=== PATIENT | male | born 1985 | race Caucasian/White ===

== ENCOUNTER 2019-06-26 13:45 | Emergency (ER) | payer SELFPAY ==
[2019-06-26] MEDS ORDERED: IBUPROFEN 600 MG TAB PO ONE (14:22)
--- NOTE | 2019-06-26 14:30 | Emergency Department Report ---
ED Extremity Problem HPI - General Chief complaint: Extremity Injury, Lower Stated complaint: (R) KNEE PAIN Time Seen by Provider: 06/26/19 14:22 Source: patient Mode of arrival: Ambulatory Limitations: No Limitations - History of Present Illness Initial comments: 34-year-old male presents to the emergency room for pain in his right knee And left calf numbness. Patient denies any recent traumas. 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 Patient has not taken anything for pain. He has no known drug allergies no past medical history and currently takes no medications on a daily basis. MD Complaint: extremity pain Location: left, right, knee, other (Calf) History of Same: No -: Yes arthralgia Severity scale (0 -10): 8 Quality: aching Consistency: constant Improves with: rest Worsens with: weight bearing, walking - Related Data Previous Rx's Medication Instructions Recorded Last Taken Type Ibuprofen [Motrin 600 MG tab] 600 mg PO Q8H PRN #15 tablet 06/26/19 Unknown Rx Allergies Allergy/AdvReac Type Severity Reaction Status Date / Time No Known Allergies Allergy Unverified 06/26/19 13:56 ED Review of Systems ROS: Stated complaint: (R) KNEE PAIN Other details as noted in HPI Comment: All other systems reviewed and negative ED Past Medical Hx - Past Medical History Previous Medical History?: No - Surgical History Past Surgical History?: No - Social History Smoking Status: Never Smoker Substance Use Type: Alcohol - Medications Home Medications: Home Medications Medication Instructions Recorded Confirmed Last Taken Type Ibuprofen [Motrin 600 MG tab] 600 mg PO Q8H PRN #15 tablet 06/26/19 Unknown Rx ED Physical Exam - General Limitations: No Limitations General appearance: alert, in no apparent distress - Head Head exam: Present: atraumatic, normocephalic - Eye Eye exam: Present: normal appearance - ENT ENT exam: Present: mucous membranes moist - Neck Neck exam: Present: normal inspection - Expanded Lower Extremity Exam Right Hip exam: Present: full ROM, tenderness. Absent: swelling Upper Leg exam: Present: normal inspection, full ROM. Absent: tenderness Knee exam: Present: tenderness. Absent: swelling, erythema Lower Leg exam: Present: normal inspection, full ROM. Absent: tenderness, swelling, abrasion Ankle exam: Absent: normal inspection ED Course Vital Signs 06/26/19 13:58 Temperature 97.6 F Pulse Rate 97 H Respiratory 18 Rate Blood Pressure 120/81 O2 Sat by Pulse 96 Oximetry ED Medical Decision Making - Radiology Data Radiology results: report reviewed Print Report Referring Physician:DANY ROSADOPatient Name:TRISTEN Skinnerent ID:[id number] of :[id number]:MaleAccession:[id number] Date:[id number] Status:Finalized Findings [facility] [address] [place] [address] XRay Report Signed Patient: TRISTEN VERDUZCO MR#: [id number] : 1985 Acct:[id number] Age/Sex: 34 / M ADM Date: 06/26/19 Loc: ED Attending Dr: Ordering Physician: SAURABH SÁNCHEZ Date of Service: 06/26/19 Procedure(s): XR knee 3V RT Accession Number(s): [id number] cc: SAURABH SÁNCHEZ Fluoro Time In Minutes: RIGHT KNEE 3 VIEW(S) INDICATION / CLINICAL INFORMATION: MAIN: knee pain/fall COMPARISON: None available. FINDINGS: BONES / JOINT(S): No acute fracture or subluxation. No significant arthritis. No significant joint effusion. SOFT TISSUES: No significant abnormality. ADDITIONAL FINDINGS: None. Signer Name: Brooks Go MD Signed: 06/26/2019 3:19 PM Workstation Name: [id number] Transcribed By: DT Dictated By: Trent Go MD Electronically Authenticated By: Trent Go MD Signed Date/Time: 06/26/19 1519 DD/ 1514 TD/TT: - Medical Decision Making 34-year-old male presents to the emergency room for pain in his right knee And left calf numbness. Patient denies any recent traumas. 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 Patient has not taken anything for pain. He has no known drug allergies no past medical history and currently takes no medications on a daily basis. X-ray of right knee has been ordered ibuprofen 600 mg have been ordered for pain management. Critical care attestation.: If time is entered above; I have spent that time in minutes in the direct care of this critically ill patient, excluding procedure time. ED Disposition Clinical Impression: Knee pain, right, Numbness and tingling of lower extremity Disposition: - TO HOME OR SELFCARE Is pt being admited?: No Does the pt Need Aspirin: No Condition: Stable Additional Instructions: X-ray of right knee is negative for any abnormalities. I recommend to continue taking the ibuprofen for pain management. I recommend following up with her primary care provider to be evaluated for your left lower leg numbness and tingling. La radiografa de la rodilla derecha es negativa para cualquier anomala. Recomiendo seguir tomando el ibuprofeno para el manejo del dolor. Recomiendo hacer un seguimiento con kessler proveedor de atencin primaria para ser evaluado para el entumecimiento y el hormigueo de la parte inferior izquierda de la pierna. Prescriptions: Ibuprofen [Motrin 600 MG tab] 600 mg PO Q8H PRN #15 tablet PRN Reason: Pain , Severe (7-10) Referrals: YANETH CASTRO MD [Staff Physician] - 3-5 Days Forms: Work/School Release Form(ED) Print Language: CZECH
--- NOTE | 2019-06-26 15:23 | XRay Report ---
RIGHT KNEE 3 VIEW(S) INDICATION / CLINICAL INFORMATION: MAIN: knee pain/fall COMPARISON: None available. FINDINGS: BONES / JOINT(S): No acute fracture or subluxation. No significant arthritis. No significant joint ef fusion. SOFT TISSUES: No significant abnormality. ADDITIONAL FINDINGS: None. Signer Name: Brooks oG MD Signed: 06/26/2019 3:19 PM Workstation Name: [id number]
[2019-06-28 12:41] VITALS: BP 120/81
== END 2019-06-26 16:41 | disposition home or self-care (01) ==
LOC: ED 13:45
DX: M25.561 Pain in right knee (principal); R20.0 Anesthesia of skin; Z79.1 Long term (current) use of non-steroidal anti-inflammatories (NSAID)